=== PATIENT | female | born 1990 | race Caucasian/White ===

== ENCOUNTER 2021-11-03 14:23 | Outpatient (CLI) | payer OTHER, SELFPAY | END 2021-11-03 14:24 | disposition home or self-care (01) | LOC: LKVREF 14:24 | PROVIDERS: PCP Family Medicine; Visit Provider Nurse Practitioner Family | DX: N89.8 Other specified noninflammatory disorders of vagina (principal); R30.0 Dysuria; R53.83 Other fatigue; R10.9 Unspecified abdominal pain; R19.7 Diarrhea, unspecified | CPT/HCPCS: 87086 ==

== ENCOUNTER 2021-11-12 11:24 | Outpatient (CLI) | payer OTHER, SELFPAY ==
[2021-11-12 14:40] LABS: Chlamydia DNA Amplified* NOT DETECTED (No Detected); GC DNA Amplified* NOT DETECTED (No Detected)
== END 2021-11-12 11:25 | disposition home or self-care (01) ==
PROVIDERS: PCP Family Medicine; Visit Provider Physician Assistant
DX: R10.2 Pelvic and perineal pain (principal)
CPT/HCPCS: 87491; 87591

== ENCOUNTER 2021-11-18 10:43 | Outpatient (CLI) | payer OTHER, SELFPAY ==
--- NOTE | 2021-11-18 11:00 | CRLHL7_ITS ---
For Patients: As a result of the Century Cures Act, medical imaging exams and procedure reports are released immediately into your electronic medical record. You may view this report before your referring provider. If you have questions, please contact your health care provider. INDICATION: Pelvic pain COMPARISON: none TECHNIQUE: 2D pichardo scale and color Doppler images were acquired of the pelvis using a transabdominal and transvaginal approach. Power Doppler of both ovaries also performed. FINDINGS: Sonographic images demonstrate a normal size and smooth outer contour of the uterus. Uterus measures 8.3 cm in length by 4.0 cm in AP diameter by 5.3 cm in transverse dimension. The myometrium has a normal uniform echotexture. The endometrial lining appears normal and measures 3 mm in composite thickness. The right ovary measures 3.2 x 2.8 x 1.6 cm in size and the left ovary measures 3.1 x 2.0 x 2.5 cm. The ovaries demonstrate normal arterial and venous blood flow on color Doppler analysis. There are no suspicious fluid collections within the cul-de-sac. Normal power Doppler evaluation of both ovaries without torsion. IMPRESSION: Normal pelvic ultrasound. Dictated by Lionel Yu MD @ 11/18/2021 11:54:59 AM (Electronically Signed)
== END 2021-11-18 10:44 | disposition home or self-care (01) ==
LOC: US 10:43
PROVIDERS: PCP Family Medicine; Visit Provider Physician Assistant
DX: R10.2 Pelvic and perineal pain (principal)
CPT/HCPCS: 76830; 76856; 93976

== ENCOUNTER 2021-12-12 19:10 | Emergency (ER) | payer OTHER, SELFPAY ==
[2021-12-12 19:15] VITALS: BP 111/73; PULSE 89; RESP 16; TEMP 36.6; O2SAT 99; BMI 28.9
--- NOTE | 2021-12-12 19:28 | ED.GENADULT ---
HPI - General Adult General Time Seen by Provider: 19:28 Date Seen: 12/12/21 Chief complaint: Headache/Migraine Stated complaint: Migraine Time Seen by Provider: 12/12/21 19:14 Source: patient Mode of arrival: ambulatory Limitations: no limitations History of Present Illness HPI narrative: Patient is a 31 year white female has history of migraine headaches. Took a Imitrex shot today and did seem to help much she has had a headache for couple of days. No nuchal rigidity, no thunderclap nature to her headache, no neurologic complaints, patient has had mild photophobia and right frontal headache. She sees Dr. Herman, has been on Imitrex in the past that tends to help her for the most part. No fevers chills Related Data Home Medications Medication Instructions Recorded Confirmed albuterol sulfate 90 mcg/actuation g inhalation 11/03/21 12/12/21 aerosol inhaler fluoxetine 20 mg capsule 20 mg PO 11/03/21 12/12/21 fluoxetine 40 mg capsule 40 mg PO 11/03/21 12/12/21 hydroxyzine HCl 25 mg tablet 25 mg PO 11/03/21 12/12/21 lisdexamfetamine 30 mg capsule 30 mg PO 11/03/21 12/12/21 (Vyvanse) Previous Rx's Medication Instructions Recorded ondansetron HCl 4 mg tablet 4 mg PO Q8H PRN nausea and 12/12/21 vomiting #14 tabs sumatriptan succinate 100 mg See Rx Instructions PO .COMPLEX #9 12/12/21 tablet (Imitrex) tabs Allergies Allergy/AdvReac Type Severity Reaction Status Date / Time codeine Allergy Intermediate Vomiting Verified 12/12/21 10:03 Review of Systems Status of ROS: Reports: 6 or more systems reviewed and unremarkable except as noted in History and below PFSH PFSH Social History Smoking Status: Former smoker Do you use any of these nicotine containing products: Vaping Products How often do you have a drink containing alcohol: never AUDIT-C Alcohol total score: 0 Non-prescribed substance use: other Non-prescribed substance use details: delta 8 Exam Narrative: Exam Narrative: Objective: Patient is alert or x3, no apparent distress Vital signs unremarkable Neck is supple No neurologic complaints moves all extremities Const: Vital Signs, click to edit/add: Vital Signs - 24 hr 12/12/21 19:15 Temperature 97.8 F Pulse Rate [Right Pulse Oximeter] 89 Respiratory Rate 16 Blood Pressure [Ri ght Upper Arm] 111/73 Pulse Oximetry 99 Oxygen Delivery Me thod Room Air Course Vital Signs Vital signs: Initial Vital Signs Temperature 97.8 F 12/12/21 19:15 Temperature Source Temporal Artery Scan 12/12/21 19:15 Pulse Rate 89 12/12/21 19:15 Pulse Rhythm 12/12/21 19:15 Respiratory Rate 16 12/12/21 19:15 Blood Pressure 111/73 12/12/21 19:15 Blood Pressure Mean 85 12/12/21 19:15 Pulse Oximetry 99 12/12/21 19:15 Oxygen Delivery Method 12/12/21 19:15 Vital Signs Temperature 97.8 F 12/12/21 19:15 Pulse Rate 89 12/12/21 19:15 Respiratory Rate 16 12/12/21 19:15 Blood Pressure 111/73 12/12/21 19:15 Pulse Oximetry 99 12/12/21 19:15 Oxygen Delivery Method 12/12/21 19:15 Temperature 97.8 F 12/12/21 19:15 Pulse Rate 89 12/12/21 19:15 Respiratory Rate 16 12/12/21 19:15 Blood Pressure 111/73 12/12/21 19:15 Pulse Oximetry 99 12/12/21 19:15 Oxygen Delivery Method 12/12/21 19:15 Medical Decision Making MDM Narrative Medical decision making narrative: Patient's history migraine headaches, has not exacerbated migraine headache now. Has no worrisome symptoms such as thunderclap nature to the headache. Will give her IV Toradol, Reglan, Benadryl, IV fluid. Discharge to home rest light activity update primary care in 48 hours certainly sooner change concerns return to the ED Discharge Plan Discharge Clinical Impression: Migraine Patient Disposition: Home w/ Parent or Adult Condition: Improved Instructions: Migraine Headache (ED) Additional Instructions: Rest, fluids, continue home meds, update primary care in the next couple of days, return to ED sooner problems concerns difficulty. Activity Level: Light activity Discharge Diet: Regular Prescriptions: No Action fluoxetine 40 mg capsule 40 mg PO fluoxetine 20 mg capsule 20 mg PO Label Comments: TAKE 1 CAPSULE BY MOUTH DAILY NEEDED WITH ONE 40MG CAPSULE FOR TOTAL DOSAGE OF 60MG DAILY Vyvanse 30 mg capsule 30 mg PO Label Comments: TAKE 1 CAPSULE BY MOUTH IN THE MORNING hydroxyzine HCl 25 mg tablet 25 mg PO Label Comments: TAKE 1 TO 2 TABLETS BY MOUTH NIGHTLY NEEDED albuterol sulfate 90 mcg/actuation HFA aerosol inhaler inhalation Label Comments: INHALE 2 PUFFS BY MOUTH EVERY 4 HOURS NEEDED sumatriptan succinate [Imitrex] 100 mg tablet See Rx Instructions PO .COMPLEX Qty: 9 1RF Rx Instructions: take 1 tab at onset of headache; if no relief, may repeat 1 tab after at least 2 hrs; max = 2 tabs/24 hrs PO ondansetron HCl 4 mg tablet 4 mg PO Q8H PRN (Reason: nausea and vomiting) Qty: 14 0RF Follow Up/Referrals: Lionel Herman MD [Primary Care Provider] - Stand Alone [facility]: [facility] Info Instructions
[2021-12-12] MEDS: diphenhydrAMINE 50 MG/ML inj 25 MG IVP (19:37)
[2021-12-12] MEDS: KETOROLAC 30 MG/ML inj IVP (19:38)
[2021-12-12] MEDS: 0.9 % SODIUM CHLORIDE 1000 ml 1,000 ML 6000 ML IV (19:39)
[2021-12-12] MEDS: METOCLOPRAMIDE HCL 10 MG in 0.9 % SODIUM CHLORIDE 100 ml 100 ML 306 MG IV (19:40)
--- NOTE | 2021-12-12 21:31 | ED.NURSE ---
pt states headache resolved and ready to discharge, iv out pt dc home.
== END 2021-12-12 21:32 | disposition home or self-care (01) ==
LOC: ED 19:29
PROVIDERS: Emergency Provider Family Medicine; PCP Family Medicine
DX: G43.909 Migraine, unspecified, not intractable, without status migrainosus (principal)
CPT/HCPCS: 96374; 96375; 99283; 99284; J1200; J1885; J2765; J7030

== ENCOUNTER 2021-12-16 16:20 | Emergency (ER) | payer OTHER, SELFPAY ==
[2021-12-16 16:26] VITALS: BP 130/85; PULSE 66; RESP 18; TEMP 36.5; O2SAT 96; BMI 28.3
--- NOTE | 2021-12-16 18:04 | CRLHL7_ITS ---
For Patients: As a result of the Century Cures Act, medical imaging exams and procedure reports are released immediately into your electronic medical record. You may view this report before your referring provider. If you have questions, please contact your health care provider. INDICATION: Headache. TECHNIQUE: CT head without contrast. COMPARISON: None. FINDINGS: CSF spaces: Within normal limits for age. Brain parenchyma and extra-axial spaces: The pichardo-white differentiation is normal. No sign of mass, hemorrhage, or midline shift. No extra-axial fluid collection. Skull base and calvarium: The visualized paranasal sinuses and mastoid air cells demonstrate no acute or significant findings. The visualized orbits are grossly unremarkable. No skull fractures. IMPRESSION: Unremarkable noncontrast head CT. Please note that all CT scans at this facility use dose modulation, iterative reconstruction, and/or weight-based dosing when appropriate to reduce radiation dose to as low as reasonably achievable. Dictated by Dwayne Naisl MD @ 12/16/2021 7:58:39 PM (Electronically Signed)
[2021-12-16] MEDS: diphenhydrAMINE 50 MG/ML inj IVP (18:42)
[2021-12-16] MEDS: METOCLOPRAMIDE HCL 10 MG in 0.9 % SODIUM CHLORIDE 100 ml 100 ML 306 MG IV (18:43)
[2021-12-16] MEDS: 0.9 % SODIUM CHLORIDE 1000 ml 1,000 ML 6000 ML IV (18:43)
[2021-12-16 18:46] LABS: Eosinophils Absolute Auto 0.01 K/uL (0.00-0.50); Eosinophils Percent Auto 0.1 % (0.0-7.0); Hematocrit 42.6 % (33.0-51.0); Hemoglobin* 14.4 gm/dL (12.0-16.0); Immature Granulocytes Abs Auto 0.02 K/uL (0.00-0.30); Lymphocytes Percent Auto 6.8 % (20-44); Mean Corpuscular HGB Conc 34 gm/dL (32-36); Mean Corpuscular Hemoglobin 30 pg (26-34); Mean Corpuscular Volume 88 fL (80-100); Monocytes Percent Auto 1.5 % (0.0-11.0); Neutrophils Percent Auto 91.4 % (42.0-72.0); Platelet Count* 317 K/uL (140-440); RDW Coefficient of Variation % 13.1 % (11.5-15.5); Red Blood Count 4.86 m/uL (4.00-5.20); White Blood Count* 9.46 K/uL (4.50-11.00)
[2021-12-16 18:53] LABS: Slide Review Reflex No
[2021-12-16 19:00] LABS: Chloride* 102 mmol/L (96-114); Sodium* 136 mmol/L (135-149)
[2021-12-16 19:03] LABS: Amylase* 74 U/L (18-89); Creatinine* 1.1 mg/dL (0.5-1.5); Est. Creatinine Clearance* 66.68; Estimated Glomerular Filt Rate 69 ml/min
[2021-12-16 19:04] LABS: Blood Urea Nitrogen* 25 mg/dL (5-24); Carbon Dioxide* 25 mmol/L (20-32); Glucose* 128 mg/dL (60-115)
[2021-12-16 19:05] LABS: Potassium* 4.6 mmol/L (3.6-5.1)
[2021-12-16 19:06] LABS: C Reactive Protein* 1.3 mg/dL (0.5-1.0)
[2021-12-16 19:11] LABS: HCG Qualitative Serum* Negative (Negative)
[2021-12-16 19:16] LABS: Albumin* 4.6 g/dL (3.3-5.0)
[2021-12-16 19:19] LABS: Bilirubin Direct* 0.4 mg/dL (0.0-0.5); Bilirubin Total* 0.5 mg/dL (0.1-1.5); Total Protein* 8.2 g/dL (6.0-8.3)
[2021-12-16 19:20] LABS: Alanine Aminotransferase* 33 U/L (4-35); Alkaline Phosphatase* 68 U/L (40-150)
[2021-12-16 19:34] LABS: Aspartate Amino Transferase* 39 U/L (12-35)
[2021-12-16 19:37] LABS: SARS PCR* Negative SARS-CoV-2 (Negative)
--- NOTE | 2021-12-16 19:43 | ED_ITS ---
HPI - General Adult General Time Seen by Provider: 19:43 Date Seen: 12/16/21 Chief complaint: Headache/Migraine Stated complaint: Migraine Time Seen by Provider: 12/16/21 16:25 Source: patient Mode of arrival: ambulatory Limitations: no limitations History of Present Illness HPI narrative: Patient is a 31 year white female history migraine headaches, she was seen [facility] in the week and given Toradol Benadryl and Reglan and IV fluid. She did not seem to get much improvement from that when she went home she subsequent urgent care and got put on stop prednisone and got a shot of Toradol. She presents today complaining of still headache and some generalized abdominal pain and she thinks that might be from retching. She has had no fevers, chills, cough, chest pain. The patient has a history of using Imitrex for migraine headaches. This headaches last about a week, was not thunderclap in nature. Related Data Home Medications Medication Instructions Recorded Confirmed albuterol sulfate 90 mcg/actuation g inhalation 11/03/21 12/14/21 aerosol inhaler fluoxetine 20 mg capsule 20 mg PO 11/03/21 12/14/21 fluoxetine 40 mg capsule 40 mg PO 11/03/21 12/14/21 hydroxyzine HCl 25 mg tablet 25 mg PO 11/03/21 12/14/21 lisdexamfetamine 30 mg capsule 30 mg PO 11/03/21 12/14/21 (Vyvanse) Previous Rx's Medication Instructions Recorded ondansetron HCl 4 mg tablet 4 mg PO Q8H PRN nausea and 12/12/21 vomiting #14 tabs sumatriptan succinate 100 mg See Rx Instructions PO .COMPLEX #9 12/12/21 tablet (Imitrex) tabs prednisone 20 mg tablet 40 mg PO QDAY #10 tabs 12/14/21 Allergies Allergy/AdvReac Type Severity Reaction Status Date / Time codeine Allergy Intermediate Vomiting Verified 12/12/21 10:03 Review of Systems Status of ROS: Reports: 6 or more systems reviewed and unremarkable except as noted in History and below PFSH PFS Social History Smoking Status: Former smoker Do you use any of these nicotine containing products: Vaping Products Second hand tobacco smoke exposure: No How often do you have a drink containing alcohol: never AUDIT-C Alcohol total score: 0 Non-prescribed substance use: denies use and other Non-prescribed substance use details: delta 8 service: No Exam Narrative: Exam Narrative: Objective: Patient is alert orient x3, does not appear in marked distress Vital signs unremarkable O2 sat excellent HEENT shows no facial asymmetry, neck supple, pulses regular chest back abdomen unremarkable his, bowel sounds normoactive the abdomen extremities are no edema, neurologic nonfocal old Good peripheral perfusion noted Const: Vital Signs, click to edit/add: Vital Signs - 24 hr 12/16/21 16:26 Temperature 97.7 F Pulse Rate [Right Pulse Oximeter] 66 Respiratory Rate 18 Blood Pressure [Ri ght Upper Arm] 130/85 Pulse Oximetry 96 Oxygen Delivery Me thod Room Air Course Vital Signs Vital signs: Initial Vital Signs Temperature 97.7 F 12/16/21 16:26 Temperature Source Temporal Artery Scan 12/16/21 16:26 Pulse Rate 66 12/16/21 16:26 Respiratory Rate 18 12/16/21 16:26 Blood Pressure 130/85 12/16/21 16:26 Blood Pressure Mean 100 12/16/21 16:26 Blood Pressure Position Sitting 12/16/21 16:26 Pulse Oximetry 96 12/16/21 16:26 Oxygen Delivery Method 12/16/21 16:26 Vital Signs Temperature 97.7 F 12/16/21 16:26 Pulse Rate 66 12/16/21 16:26 Respiratory Rate 18 12/16/21 16:26 Blood Pressure 130/85 12/16/21 16:26 Pulse Oximetry 96 12/16/21 16:26 Oxygen Delivery Method 12/16/21 16:26 Temperature 97.7 F 12/16/21 16:26 Pulse Rate 66 12/16/21 16:26 Respiratory Rate 18 12/16/21 16:26 Blood Pressure 130/85 12/16/21 16:26 Pulse Oximetry 96 12/16/21 16:26 Oxygen Delivery Method 12/16/21 16:26 Medical Decision Making MDM Narrative Medical decision making narrative: Patient has had recent headache and treatment for headache, but continues to have headache and retching. I think at this point to be conrad to get a CT scan of her head to exclude any kind of lesion, bleeding, abnormality, as well as laboratory studies, will give IV fluid, IV Reglan and Benadryl, and after a negative test will give her IV ketamine. Will observe for response from hoping that the ketamine will work for her as it has in the past by her report, and hopefully we can discharge her home and follow up with primary care within the next couple of days. I would check laboratory studies to make sure she has no intra-abdominal process. Lab Data Labs: Lab Results 12/16/21 12/16/21 12/16/21 Range/Units 18:05 18:35 18:35 WBC 9.46 (4.50-11.00) K/uL RBC 4.86 (4.00-5.20) m/uL Hgb 14.4 (12.0-16.0) gm/dL Hct 42.6 (33.0-51.0) % MCV 88 (80-100) fL MCH 30 (26-34) pg MCHC 34 (32-36) gm/dL RDW Coeff of Ramu 13.1 (11.5-15.5) % Plt Count 317 (140-440) K/uL Neut % (Auto) 91.4 H (42.0-72.0) % Lymph % (Auto) 6.8 L (20-44) % Chilton % (Auto) 1.5 (0.0-11.0) % Eos % (Auto) 0.1 (0.0-7.0) % Baso % (Auto) 0.0 (0.0-3.0) % Neut # (Auto) 8.60 H (1.7-7.0) K/uL Lymph # (Auto) 0.60 L (0.90-2.90) K/uL Chilton # (Auto) 0.10 (0.00-0.90) K/UL Eos # (Auto) 0.01 (0.00-0.50) K/uL Baso # (Auto) 0.00 (0.00-0.30) K/uL Abs Immat Gran (auto) 0.02 (0.00-0.30) K/uL Sodium 136 (135-149) mmol/L Potassium 4.6 (3.6-5.1) mmol/L Chloride 102 (96-114) mmol/L Carbon Dioxide 25 (20-32) mmol/L BUN 25 H (5-24) mg/dL Creatinine 1.1 (0.5-1.5) mg/dL Estimated Creat Clear 66.68 Estimated GFR 69 ml/min Glucose 128 H (60-115) mg/dL Calcium 9.0 (8.4-10.6) mg/dL Total Bilirubin (0.1-1.5) mg/dL Direct Bilirubin (0.0-0.5) mg/dL AST (12-35) U/L ALT (4-35) U/L Alkaline Phosphatase (40-150) U/L C-Reactive Protein 1.3 H (0.5-1.0) mg/dL Total Protein (6.0-8.3) g/dL Albumin (3.3-5.0) g/dL Amylase 74 (18-89) U/L HCG, Qual (Negative) SARS-CoV-2 (PCR) Negative SARS-CoV-2 (Negative) 12/16/21 12/16/21 Range/Units 18:35 18:35 WBC (4.50-11.00) K/uL RBC (4.00-5.20) m/uL Hgb (12.0-16.0) gm/dL Hct (33.0-51.0) % MCV (80-100) fL MCH (26-34) pg MCHC (32-36) gm/dL RDW Coeff of Ramu (11.5-15.5) % Plt Count (140-440) K/uL Neut % (Auto) (42.0-72.0) % Lymph % (Auto) (20-44) % Chilton % (Auto) (0.0-11.0) % Eos % (Auto) (0.0-7.0) % Baso % (Auto) (0.0-3.0) % Neut # (Auto) (1.7-7.0) K/uL Lymph # (Auto) (0.90-2.90) K/uL Chilton # (Auto) (0.00-0.90) K/UL Eos # (Auto) (0.00-0.50) K/uL Baso # (Auto) (0.00-0.30) K/uL Abs Immat Gran (auto) (0.00-0.30) K/uL Sodium (135-149) mmol/L Potassium (3.6-5.1) mmol/L Chloride (96-114) mmol/L Carbon Dioxide (20-32) mmol/L BUN (5-24) mg/dL Creatinine (0.5-1.5) mg/dL Estimated Creat Clear Estimated GFR ml/min Glucose (60-115) mg/dL Calcium (8.4-10.6) mg/dL Total Bilirubin 0.5 (0.1-1.5) mg/dL Direct Bilirubin 0.4 (0.0-0.5) mg/dL AST 39 H (12-35) U/L ALT 33 (4-35) U/L Alkaline Phosphatase 68 (40-150) U/L C-Reactive Protein (0.5-1.0) mg/dL Total Protein 8.2 (6.0-8.3) g/dL Albumin 4.6 (3.3-5.0) g/dL Amylase (18-89) U/L HCG, Qual Negative (Negative) SARS-CoV-2 (PCR) (Negative) Discharge Plan Discharge Clinical Impression: Migraine Patient Disposition: Home w/ Parent or Adult Condition: Improved Additional Instructions: Rest, light activity, continue her home medications, recheck with her regular doctor within 48 hours. , return to the ED sooner problems or concerns, finish the medication she has been dispensed including the steroid medication Activity Level: Light activity Discharge Diet: Regular Prescriptions: No Action fluoxetine 40 mg capsule 40 mg PO fluoxetine 20 mg capsule 20 mg PO Label Comments: TAKE 1 CAPSULE BY MOUTH DAILY NEEDED WITH ONE 40MG CAPSULE FOR TOTAL DOSAGE OF 60MG DAILY Vyvanse 30 mg capsule 30 mg PO Label Comments: TAKE 1 CAPSULE BY MOUTH IN THE MORNING hydroxyzine HCl 25 mg tablet 25 mg PO Label Comments: TAKE 1 TO 2 TABLETS BY MOUTH NIGHTLY NEEDED albuterol sulfate 90 mcg/actuation HFA aerosol inhaler inhalation Label Comments: INHALE 2 PUFFS BY MOUTH EVERY 4 HOURS NEEDED sumatriptan succinate [Imitrex] 100 mg tablet See Rx Instructions PO .COMPLEX Qty: 9 1RF Rx Instructions: take 1 tab at onset of headache; if no relief, may repeat 1 tab after at least 2 hrs; max = 2 tabs/24 hrs PO ondansetron HCl 4 mg tablet 4 mg PO Q8H PRN (Reason: nausea and vomiting) Qty: 14 0RF prednisone 20 mg tablet 40 mg PO QDAY Qty: 10 0RF Follow Up/Referrals: Lionel Herman MD [Primary Care Provider] - Stand Alone Forms: [employer] Info Instructions
[2021-12-16] MEDS: KETAMINE HCL 20 MG in 0.9 % SODIUM CHLORIDE 100 ml 100 ML 200.4 MG IVPB (19:45)
--- NOTE | 2021-12-16 20:21 | W.ED.CHARTNO ---
ED Chart Note Chart Note Details Date: 12/16/21 Details: Received handoff at change of shift pending head CT. Reviewed by me looks unremarkable radiology over-read concurs. Ketamine infusion fluids are complete. Feels much better she says; better than she has been weak and feels could return home. Discharge per Dr. Anguol.
== END 2021-12-16 20:59 | disposition home or self-care (01) ==
PROVIDERS: Emergency Provider Family Medicine; PCP Family Medicine
DX: G43.909 Migraine, unspecified, not intractable, without status migrainosus (principal)
CPT/HCPCS: 36415; 70450; 80048; 80076; 82150; 84703; 85025; 86140; 87635; 96365; 96375; 99284; J1200; J2765; J3490; J7030

== ENCOUNTER 2022-10-21 10:26 | Emergency (ER) | payer OTHER, SELFPAY ==
[2022-10-21 10:35] VITALS: BP 114/80; PULSE 100; RESP 18; TEMP 36.6; O2SAT 98; BMI 26.1
--- NOTE | 2022-10-21 10:44 | CRLHL7_ITS ---
For Patients: As a result of the Century Cures Act, medical imaging exams and procedure reports are released immediately into your electronic medical record. You may view this report before your referring provider. If you have questions, please contact your health care provider. INDICATION: Sore throat. Pharyngitis. TECHNIQUE: CT of the neck with 77 cc Isovue 370 iodinated contrast agent. Coronal and sagittal reconstructions are included. COMPARISON: None. FINDINGS: Mucosal thickening and hyperenhancement within the nasopharyngeal/oropharyngeal region, compatible history of pharyngitis. No tonsillar or peritonsillar abscess. Mildly enlarged lymph nodes within the upper neck, likely reactive in etiology. No high-grade airway compromise. The supraglottic, glottic and infraglottic larynx are normal. The airway including the trachea is normal and is patent. The parotid glands, submandibular and sublingual glands are normal in appearance. The thyroid gland is normal in appearance. The vascular structures opacify normally with contrast material. No suspicious lytic or blastic osseous lesions. Scattered cervical spondylosis without significant bony neural foraminal stenosis. No periapical dental disease. Visualized paranasal sinuses and mastoid air cells are clear. Visualized orbital and intracranial contents are normal. Supraclavicular regions, mediastinum and soft tissues of the imaged chest wall are normal. Visualized portions of the upper lungs are clear. IMPRESSION: 1. Findings compatible with pharyngitis. No tonsillar or peritonsillar abscess. No high-grade airway compromise. Please note that all CT scans at this facility use dose modulation, iterative reconstruction, and/or weight-based dosing when appropriate to reduce radiation dose to as low as reasonably achievable. Dictated by Ayan Pretty MD @ 10/21/2022 12:50:16 PM (Electronically Signed)
--- NOTE | 2022-10-21 10:46 | ED.GENADULT ---
HPI - General Adult General Chief complaint: Sore Throat Stated complaint: Ear infections Time Seen by Provider: 10/21/22 10:40 History of Present Illness HPI narrative: Patient is a 32-year-old woman who was placed on amoxicillin for bilateral otitis media and pharyngitis 3 days ago. Patient states she tested negative for strep throat at that time. Patient has had no cough no sputum production no nausea no vomiting no fevers no chills. She has had no sick or COVID exposures. Patient has no chronic medical issues but states the pain and congestion in her throat and head are severe. No airway difficulties patient is eating to lesser extent feels like she is losing weight. Related Data Previous Rx's Medication Instructions Recorded amoxicillin 500 mg tablet 500 mg PO BID 7 days #14 tabs 10/18/22 Allergies Allergy/AdvReac Type Severity Reaction Status Date / Time codeine Allergy Intermediate Vomiting Verified 10/18/22 13:23 Review of Systems Status of ROS: Reports: 10 or more systems reviewed and unremarkable except as noted in History and below PFSH PFS Social History Smoking Status: Former smoker Do you use any of these nicotine containing products: Vaping Products Second hand tobacco smoke exposure: No How often do you have a drink containing alcohol: never AUDIT-C Alcohol total score: 0 Non-prescribed substance use: denies use and other Non-prescribed substance use details: delta 8 service: No Exam Narrative: Exam Narrative: EXAM GENERAL: Patient appears comfortable and well. EYES: No scleral icterus. ENT: Dullness and erythema both tympanic membranes noted Uvula is midline with pharyngeal erythema mild tonsillar enlargement. Erythema noted. Significant anterior cervical lymphadenopathy noted. THYROID: no thyroid nodules or thyromegaly. LYMPH: No supraclavicular or cervical lymphadenopathy. SKIN: Visible skin seen during exam normal or with benign process only. EXT: No dependent lower extremity pedal edema. HEART: Regular rate and rhythm with no murmurs, rubs, or gallops. LUNGS: Clear to auscultation bilaterally with no crackles or wheezes. ABD: Soft, non tender, non distended. PSYCH: Good eye contact, speech is not pressured. Const: Vital Signs, click to edit/add: Vital Signs - 24 hr 10/21/22 10:35 Temperature 97.8 F Pulse Rate [Right Pulse Oximeter] 100 Respiratory Rate 18 Blood Pressure [Ri ght Upper Arm] 114/80 Pulse Oximetry 98 Oxygen Delivery Me thod Room Air Course Course Hospital Course: 1 L normal saline given IV. CT of the neck soft tissue pending. Vital Signs Vital signs: Initial Vital Signs Temperature 97.8 F 10/21/22 10:35 Temperature Source Temporal Artery Scan 10/21/22 10:35 Pulse Rate 100 10/21/22 10:35 Respiratory Rate 18 10/21/22 10:35 Blood Pressure 114/80 10/21/22 10:35 Blood Pressure Mean 91 10/21/22 10:35 Blood Pressure Position Sitting 10/21/22 10:35 Pulse Oximetry 98 10/21/22 10:35 Oxygen Delivery Method Room Air 10/21/22 10:35 Vital Signs Temperature 97.8 F 10/21/22 10:35 Pulse Rate 100 10/21/22 10:35 Respiratory Rate 18 10/21/22 10:35 Blood Pressure 114/80 10/21/22 10:35 Pulse Oximetry 98 10/21/22 10:35 Oxygen Delivery Method Room Air 10/21/22 10:35 Temperature 97.8 F 10/21/22 10:35 Pulse Rate 100 10/21/22 10:35 Respiratory Rate 18 10/21/22 10:35 Blood Pressure 114/80 10/21/22 10:35 Pulse Oximetry 98 10/21/22 10:35 Oxygen Delivery Method Room Air 10/21/22 10:35 Medical Decision Making MDM Narrative Medical decision making narrative: Patient is a 32-year-old woman who presents with bilateral otitis media as well as pharyngitis. She is currently on day 3 of amoxicillin. On exam she has pharyngeal injection with a midline uvula as well as what appears to be otitis media bilaterally. I was concerned about peritonsillar abscess I did do CT soft tissue of the neck showing no evidence of abscess. This time I did give her a L of normal saline she is feeling much better. Did ask her to continue her amoxicillin did place her on 5 day course of prednisone help with her severe symptoms. She will continue her current outpatient regiment and follow-up with her primary physician as needed. Differential Diagnosis Differential Diagnosis: Peritonsillar abscess strep throat viral pharyngitis otitis media viral UR Discharge Plan Discharge Clinical Impression: Pharyngitis Patient Disposition: Home, Self-Care Condition: Stable Instructions: Pharyngitis (ED) Additional Instructions: Continue current amoxicillin Begin prednisone Rest Fluids Tylenol Follow-up with primary care as needed. Activity Level: No Restrictions Discharge Diet: Regular Prescriptions: No Action amoxicillin 500 mg tablet 500 mg PO BID 7 Days Qty: 14 0RF Follow Up/Referrals: Lionel Herman MD [Primary Care Provider] - Stand Alone Forms: [employer] Info Instructions
[2022-10-21] MEDS: 0.9 % SODIUM CHLORIDE 1000 ml 1,000 ML IV (11:04)
== END 2022-10-21 13:46 | disposition home or self-care (01) ==
PROVIDERS: Emergency Provider Internal Medicine; PCP Family Medicine
DX: J02.9 Acute pharyngitis, unspecified (principal)
CPT/HCPCS: 70491; 96360; 99283; 99284; 99285; J7030; Q9967

== ENCOUNTER 2023-02-11 13:12 | Outpatient (CLI) | payer SELFPAY | END 2023-02-11 13:13 | disposition home or self-care (01) | LOC: NFLDREF 02-15 17:39 | PROVIDERS: PCP Family Medicine; Referring Provider Family Medicine; Visit Provider Physician Assistant | DX: N39.0 Urinary tract infection, site not specified (principal) | CPT/HCPCS: 87086; 87186 ==

== ENCOUNTER 2024-09-17 17:51 | Outpatient (CLI) | payer OTHER, SELFPAY | END 2024-09-17 17:52 | disposition home or self-care (01) | LOC: NFLDREF 09-25 16:09 | PROVIDERS: PCP Family Medicine; Referring Provider Family Medicine | DX: N30.01 Acute cystitis with hematuria (principal); B95.7 Other staphylococcus as the cause of diseases classified elsewhere | CPT/HCPCS: 87086; 87186 ==

== ENCOUNTER 2024-12-05 11:20 | Outpatient (CLI) | payer OTHER, SELFPAY ==
--- NOTE | 2024-12-05 14:00 | CRLHL7_ITS ---
For Patients: As a result of the Century Cures Act, medical imaging exams and procedure reports are released immediately into your electronic medical record. You may view this report before your referring provider. If you have questions, please contact your health care provider. INDICATION: Leg pain and swelling. TECHNIQUE: Ultrasound venous duplex lower left extremity. Compression venous exam was performed using pichardo-scale, color Doppler, and spectral Doppler analysis. COMPARISON: None. FINDINGS: Deep veins: Sonographic imaging demonstrates the left common femoral, deep femoral, superficial femoral, popliteal, posterior tibial and the contralateral right common femoral veins to be fully compressible with normal color Doppler blood flow. Superficial veins: Greater saphenous vein is fully compressible. No popliteal cyst. IMPRESSION: Normal left lower extremity venous ultrasound, no sign of deep venous thrombosis. Dictated by Martell Quispe MD @ 12/05/2024 3:05:59 PM (Electronically Signed)
== END 2024-12-05 11:21 | disposition home or self-care (01) ==
LOC: FBOREF 11:40 → NFLDRAD 13:48
PROVIDERS: PCP Family Medicine; Visit Provider Family Medicine
DX: M79.89 Other specified soft tissue disorders (principal); M79.605 Pain in left leg
CPT/HCPCS: 80048; 85379; 93971